=== PATIENT | male | born 1980 | race Caucasian/White ===

== ENCOUNTER 2017-11-14 15:09 | Emergency (ER) | payer MEDICAID ==
[2017-11-14] MEDS: LIDOCAINE/MYLANTA 40 ML BTL PO (17:30)
[2017-11-14] MEDS: ONDANSETRON 4 MG INJ IV (17:30)
[2017-11-14] MEDS: SOD CHLORIDE 0.9% 1,000 ML IV (17:31)
[2017-11-14 17:53] LABS: ADD MAN DIFF? NO
[2017-11-14 18:00] LABS: WHITE BLOOD COUNT 15.5 10^3/ul (4.8-10.8)
[2017-11-14 18:00] LABS: BASOPHILS % 0.3 % (0.0-2.0); HEMATOCRIT 43.1 % (42.0-52.0); HEMOGLOBIN 14.8 g/dl (14.0-18.0); LYMPHOCYTES # 0.7 10^3/ul (0.8-2.9); LYMPHOCYTES % 4.3 % (15.0-51.0); MEAN CORPUSCULAR HEMOGLOBIN 30.8 pg (29.0-33.0); MEAN CORPUSCULAR HGB CONC 34.3 g/dl (32.0-37.0); MEAN CORPUSCULAR VOLUME 89.6 fl (82.0-101.0); MEAN PLATELET VOLUME 9.2 fl (7.4-10.4); MONOCYTE # 0.8 10^3/ul (0.3-0.9); MONOCYTES % 5.3 % (0.0-11.0); NEUTROPHIL # 13.9 10^3/ul (1.6-7.5); NEUTROPHILS % 89.5 % (39.0-77.0); PLATELET COUNT 227 10^3/UL (140-415); RED BLOOD COUNT 4.81 10^6/ul (4.70-6.10); RED CELL DISTRIBUTION WIDTH 12.2 % (11.5-14.5)
[2017-11-14 18:09] LABS: ADD UMIC YES; UR ASCORBIC ACID NEGATIVE (NEGATIVE); UR BILIRUBIN (Dip) NEGATIVE (NEGATIVE); UR BLOOD (Dip) 1+ mg/dL (NEGATIVE); UR CLARITY CLEAR (CLEAR); UR COLOR YELLOW (YELLOW); UR GLUCOSE (Dip) NEGATIVE (NEGATIVE); UR KETONES (Dip) 2+ mg/dL (NEGATIVE); UR LEUKOCYTE ESTERASE (Dip) TRACE Leu/ul (NEGATIVE); UR NITRITE (Dip) NEGATIVE (NEGATIVE); UR RBC 4 /HPF (0-5); UR SPECIFIC GRAVITY (Dip) 1.012 (1.003-1.030); UR TOTAL PROTEIN (Dip) NEGATIVE (NEGATIVE); UR UROBILINOGEN (Dip) NEGATIVE (NEGATIVE); UR WBC 46 /HPF (0-5)
[2017-11-14 18:22] LABS: ALANINE AMINOTRANSFERASE 32 IU/L (13-69); ALBUMIN 4.6 g/dl (3.3-4.9); ALBUMIN/GLOBULIN RATIO 1.39; ALKALINE PHOSPHATASE 65 IU/L (42-121); ANION GAP 14 (8-16); ASPARTATE AMINO TRANSFERASE 21 IU/L (15-46); BILIRUBIN,INDIRECT 1.7 mg/dl (0-1.1); BILIRUBIN,TOTAL 1.7 mg/dl (0.2-1.3); BLOOD UREA NITROGEN 16 mg/dl (7-20); CALCIUM 9.8 mg/dl (8.4-10.2); CARBON DIOXIDE 30 mmol/L (21-31); CHLORIDE 105 mmol/L (97-110); CREATININE 0.89 mg/dl (0.61-1.24); GLUCOSE 129 mg/dl (70-220); LIPASE 41 U/L (23-300); POTASSIUM 3.7 mmol/L (3.5-5.1); SODIUM 145 mmol/L (135-144); TOTAL PROTEIN 7.9 g/dl (6.1-8.1)
[2017-11-14 18:34] LABS: TROPONIN-I < 0.012 ng/ml (0.00-0.12)
== END 2017-11-14 20:26 | disposition home or self-care (01) ==
LOC: FTE 15:09
DX: N39.0 Urinary tract infection, site not specified (principal)
CPT/HCPCS: 36415; 74176; 76705; 80053; 81001; 83690; 84484; 85025; 87591; 93005; 96361; 96374; 99285-25

== ENCOUNTER 2018-09-20 18:38 | Observation (INO) | payer SELFPAY, OTHER, MEDICAID ==
[2018-09-21 01:13] LABS: ADD MAN DIFF? NO
[2018-09-21 01:16] LABS: WHITE BLOOD COUNT 5.3 10^3/ul (4.8-10.8)
[2018-09-21 01:16] LABS: BASOPHILS % 0.8 % (0.0-2.0); EOSINOPHILS # 0.1 10^3/ul (0.0-0.5); EOSINOPHILS % 1.9 % (0.0-7.0); HEMATOCRIT 47.1 % (42.0-52.0); HEMOGLOBIN 15.7 g/dl (14.0-18.0); LYMPHOCYTES # 2.2 10^3/ul (0.8-2.9); LYMPHOCYTES % 41.6 % (15.0-51.0); MEAN CORPUSCULAR HEMOGLOBIN 29.9 pg (29.0-33.0); MEAN CORPUSCULAR HGB CONC 33.3 g/dl (32.0-37.0); MEAN CORPUSCULAR VOLUME 89.7 fl (82.0-101.0); MEAN PLATELET VOLUME 8.9 fl (7.4-10.4); MONOCYTE # 0.4 10^3/ul (0.3-0.9); MONOCYTES % 6.8 % (0.0-11.0); NEUTROPHIL # 2.6 10^3/ul (1.6-7.5); NEUTROPHILS % 48.5 % (39.0-77.0); PLATELET COUNT 239 10^3/UL (140-415); RED BLOOD COUNT 5.25 10^6/ul (4.70-6.10); RED CELL DISTRIBUTION WIDTH 11.8 % (11.5-14.5)
[2018-09-21 01:41] LABS: ALANINE AMINOTRANSFERASE 34 IU/L (13-69); ALBUMIN 4.8 g/dl (3.3-4.9); ALKALINE PHOSPHATASE 67 IU/L (42-121); ANION GAP 13 (5-13); ASPARTATE AMINO TRANSFERASE 29 IU/L (15-46); BLOOD UREA NITROGEN 14 mg/dl (7-20); CALCIUM 9.7 mg/dl (8.4-10.2); CARBON DIOXIDE 28 mmol/L (21-31); CHLORIDE 102 mmol/L (97-110); CREATININE 0.73 mg/dl (0.61-1.24); Estimated GFR > 60 mL/min (>60); GLUCOSE 96 mg/dl (70-220); POTASSIUM 3.9 mmol/L (3.5-5.1); SODIUM 143 mmol/L (135-144)
[2018-09-21 01:53] LABS: B-TYPE NATRIURETIC PEPTIDE 21 PG/ML (0-125); TROPONIN-I < 0.012 ng/ml (0.000-0.120)
[2018-09-21] MEDS ORDERED: NACL 0.9% 3 ML SYG IV (03:00)
[2018-09-21] MEDS ORDERED: DOCUSATE SODIUM 100 MG CAP PO (03:00)
[2018-09-21] MEDS ORDERED: morphine 2 MG INJ IV (03:00)
[2018-09-21] MEDS ORDERED: NITROGLYCERIN (SL) 0.4 MG TAB SL (03:00)
[2018-09-21] MEDS ORDERED: BISACODYL (EC) 5 MG TAB PO (03:00)
[2018-09-21] MEDS ORDERED: ONDANSETRON 4 MG INJ IV (03:00)
[2018-09-21 06:28] LABS: CK-MB 1.07 ng/ml (0.0-2.4); TROPONIN-I < 0.012 ng/ml (0.000-0.120)
[2018-09-21 06:37] LABS: CK INDEX 0.6; CREATINE KINASE 186 IU/L (23-200)
[2018-09-21 06:42] LABS: MAGNESIUM 2.1 mg/dl (1.7-2.5)
[2018-09-21 06:42] LABS: CHOLESTEROL 193 mg/dl (100-200); HDL CHOLESTEROL 48 mg/dl (27-67); LDL CHOLESTEROL,CALCULATED 128 mg/dl; TRIGLYCERIDES 85 mg/dl (0-149)
[2018-09-21 07:08] LABS: HEMOGLOBIN A1C 5.3 % (0-5.9)
[2018-09-21] MEDS: ASPIRIN 81 MG TAB PO (09:57)
[2018-09-21] MEDS: ACETAMINOPHEN 325 MG TAB PO (09:57)
[2018-09-21 13:29] LABS: CREATINE KINASE 181 IU/L (23-200)
[2018-09-21 13:38] LABS: B-TYPE NATRIURETIC PEPTIDE 17 PG/ML (0-125)
[2018-09-21 13:41] LABS: CK INDEX 0.4; CK-MB 0.73 ng/ml (0.0-2.4); TROPONIN-I < 0.012 ng/ml (0.000-0.120)
[2018-09-22 06:07] LABS: ADD MAN DIFF? NO
[2018-09-22 06:09] LABS: WHITE BLOOD COUNT 5.1 10^3/ul (4.8-10.8)
[2018-09-22 06:09] LABS: BASOPHILS % 0.6 % (0.0-2.0); EOSINOPHILS # 0.1 10^3/ul (0.0-0.5); EOSINOPHILS % 2.4 % (0.0-7.0); HEMATOCRIT 47.1 % (42.0-52.0); HEMOGLOBIN 15.7 g/dl (14.0-18.0); LYMPHOCYTES # 1.7 10^3/ul (0.8-2.9); LYMPHOCYTES % 33.9 % (15.0-51.0); MEAN CORPUSCULAR HGB CONC 33.3 g/dl (32.0-37.0); MEAN CORPUSCULAR VOLUME 89.9 fl (82.0-101.0); MEAN PLATELET VOLUME 9.3 fl (7.4-10.4); MONOCYTE # 0.4 10^3/ul (0.3-0.9); MONOCYTES % 7.5 % (0.0-11.0); NEUTROPHIL # 2.8 10^3/ul (1.6-7.5); NEUTROPHILS % 55.2 % (39.0-77.0); PLATELET COUNT 233 10^3/UL (140-415); RED BLOOD COUNT 5.24 10^6/ul (4.70-6.10); RED CELL DISTRIBUTION WIDTH 11.8 % (11.5-14.5)
[2018-09-22 06:45] LABS: PHOSPHORUS 4.5 mg/dl (2.5-4.9)
[2018-09-22 06:45] LABS: MAGNESIUM 2.1 mg/dl (1.7-2.5)
[2018-09-22 06:48] LABS: ALANINE AMINOTRANSFERASE 33 IU/L (13-69); ALBUMIN 4.3 g/dl (3.3-4.9); ALBUMIN/GLOBULIN RATIO 1.48; ALKALINE PHOSPHATASE 52 IU/L (42-121); ANION GAP 10 (5-13); ASPARTATE AMINO TRANSFERASE 24 IU/L (15-46); BILIRUBIN,INDIRECT 1.6 mg/dl (0-1.1); BILIRUBIN,TOTAL 1.6 mg/dl (0.2-1.3); BLOOD UREA NITROGEN 20 mg/dl (7-20); CALCIUM 9.7 mg/dl (8.4-10.2); CARBON DIOXIDE 26 mmol/L (21-31); CHLORIDE 107 mmol/L (97-110); CREATININE 0.92 mg/dl (0.61-1.24); Estimated GFR > 60 mL/min (>60); GLUCOSE 94 mg/dl (70-220); POTASSIUM 3.9 mmol/L (3.5-5.1); SODIUM 143 mmol/L (135-144); TOTAL PROTEIN 7.2 g/dl (6.1-8.1)
[2018-09-22] MEDS: ASPIRIN 81 MG TAB PO (08:25)
[2018-09-22] MEDS: REGADENOSON 0.4 MG/5 ML SYG (13:45)
== END 2018-09-22 16:53 | disposition home or self-care (01) ==
LOC: E/R 18:38 → 6WM 09-21 02:29
DX: R07.89 Other chest pain (principal); E78.5 Hyperlipidemia, unspecified
CPT/HCPCS: 36415; 71045; 78452; 80053; 80061; 82550; 82553; 83036; 83735; 83880; 84100; 84443; 84484; 85025; 93005; 93017; 93306; 99217; 99285-25; G0378